=== PATIENT | female | born 1945 | race Caucasian/White ===

== ENCOUNTER 2023-07-13 13:17 | Outpatient (CLI) | payer MEDICARE, SELFPAY ==
--- NOTE | 2023-07-13 13:21 | XR_ITS ---
FINAL REPORT CLINICAL HISTORY: Chronic right foot pain FINDINGS: RIGHT FOOT 3 views of the right foot were obtained. There is no acute fracture or dislocation. There are mild degenerative changes. Small calcaneal spurs are noted. There is a calcification in the region of the posterior plantar aponeurosis. Soft tissues are unremarkable. IMPRESSION: Degenerative changes with no acute bony abnormality. Reviewed, Interpreted and Dictated by Kris El III, MD Transcribed by Zoe Daily Authenticated and [facility]
--- NOTE | 2023-07-13 13:21 | XR_ITS ---
FINAL REPORT CLINICAL HISTORY: Chronic left foot pain FINDINGS: LEFT FOOT Three views of the left foot demonstrate no acute fracture or dislocation. There are mild degenerative changes. There is small calcaneal spurs. The soft tissues are unremarkable. IMPRESSION: Degenerative changes with no acute bony abnormality. Reviewed, Interpreted and Dictated by Kris El III, MD Transcribed by Zoe Daily Authenticated and [facility]
== END 2023-07-13 23:59 ==
LOC: RAD 13:18
PROVIDERS: PCP Nurse Practitioner Family; Visit Provider Nurse Practitioner
DX: M79.671 Pain in right foot (principal); M79.672 Pain in left foot
CPT/HCPCS: 73630

== ENCOUNTER 2023-11-19 12:02 | Outpatient (CLI) | payer MEDICARE, MEDICAID, SELFPAY | END 2023-11-19 23:59 | disposition home or self-care (01) | LOC: LAB.DROPOF 11-20 12:02 | PROVIDERS: PCP Nurse Practitioner; Visit Provider Nurse Practitioner | DX: E11.8 Type 2 diabetes mellitus with unspecified complications (principal); L60.8 Other nail disorders | CPT/HCPCS: 87070; 87077; 87186; 87205 ==